=== PATIENT | male | born 2000 | race Caucasian/White ===

== ENCOUNTER 2021-10-23 18:47 | Emergency (ER) | payer BC ==
[2021-10-23 20:30] VITALS: RESP 18
[2021-10-23 20:43] LABS: Appearance,Urine Clear (Clear); Bilirubin,Urine Negative (Negative); Blood,Urine Negative (Negative); Color,Urine Colorless; Glucose,Urine (UA) Negative (Negative); Ketones,Urine Negative (Negative); Leukocyte Esterase,Urine Negative (Negative); Nitrite,Urine Negative (Negative); PH, Urine 6.5 (5.0-8.0); Protein,Urine Negative (Negative); Specific Gravity,Urine 1.003 (1.001-1.035); Urobilinogen,Urine <2.0 mg/dL (<2.0)
--- NOTE | 2021-10-23 22:16 | US ---
EXAMINATION TYPE: US scrotum with doppler. Grayscale and color Doppler Duplex imaging performed of mary kate salter scrotum. DATE OF EXAM: 10/23/2021 COMPARISON: NONE CLINICAL HISTORY: testicular pain. Testicular pain x 2 weeks EXAM MEASUREMENTS: TESTICLES: Right Testicle: 4.2 x 2.4 x 2.9 cm Left Testicle: 4.2 x 2.4 x 3.1 cm EPIDIDYMIS HEAD: Right Epididymis: 0.5 x 0.7 x 0.6 cm Left Epididymis: 0.6 x 1.0 x 0.5 cm Doppler performed to assess for testicular vascularity; good bilateral color flow and waveforms are s een. There is no evidence of testicular torsion. Presence of hydroceles: No Presence of varicoceles: No IMPRESSION: Normal testicular sonogram. No testicular torsion or mass. No free fluid.
--- NOTE | 2021-10-23 23:24 | ED ---
Male Urogenital HPI - General Chief complaint: Urogenital Stated complaint: Male Time Seen by Provider: 10/23/21 22:57 Source: patient, RN notes reviewed Mode of arrival: ambulatory Limitations: no limitations - History of Present Illness Initial comments: This is a pleasant 21-year-old male who presents immerse her back complaining of right testicular pain and right groin pain wasn't going on for about 2 weeks. Patient states he went to an urgent care when he was in another state and had STD testing done. Patient was treated at urgent care with antibiotics and was sent home on doxycycline. Patient states that the pain continue. He is describing a tight sensation. He feels like the right testicle is being pulled upward. Patient had a urinalysis and ultrasound done here in triage which were both negative. Patient denies any hematuria. He denies any significant back pain. Patient does indicate that the pain seemed to start up in the right groin, close to the right lower quadrant area. Patient also indicating that his appetite has been diminished. No fever No headache, no fever or chills, no changes in vision or hearing, no sore throat or difficulty with speech, no neck pain, no chest pain or shortness of breath, no nausea or vomiting, no changes in urination or bowel movements, no numbness or tingling, no extremity pain, no skin rashes or lesions. - Related Data Previous Rx's Medication Instructions Recorded Doxycycline Monohydrate [Monodox] 100 mg PO Q12HR #14 cap 10/24/21 Allergies Allergy/AdvReac Type Severity Reaction Status Date / Time No Known Allergies Allergy Verified 10/23/21 20:30 Review of Systems ROS Statement: Those systems with pertinent positive or pertinent negative responses have been documented in the HPI. ROS Other: All systems not noted in ROS Statement are negative. Past Medical History Past Medical History: No Reported History History of Any Multi-Drug Resistant Organisms: None Reported Past Surgical History: No Surgical Hx Reported Past Psychological History: Anxiety, Depression Smoking Status: Vaper Past Alcohol Use History: Occasional Past Drug Use History: Marijuana General Exam Limitations: no limitations General appearance: alert, in no apparent distress Head exam: Present: atraumatic, normocephalic, normal inspection Eye exam: Present: normal appearance, PERRL, EOMI. Absent: scleral icterus, conjunctival injection, periorbital swelling ENT exam: Present: normal exam, normal oropharynx, mucous membranes moist, normal external ear exam Neck exam: Present: normal inspection. Absent: tenderness, meningismus, lymphadenopathy Respiratory exam: Present: normal lung sounds bilaterally. Absent: respiratory distress, wheezes, rales, rhonchi, stridor Cardiovascular Exam: Present: regular rate, normal rhythm, normal heart sounds. Absent: systolic murmur, diastolic murmur, rubs, gallop, clicks GI/Abdominal exam: Present: soft, tenderness (Very mild tenderness noted in the right lower quadrant area to palpation. No rebound or percussion tenderness), normal bowel sounds. Absent: distended, guarding, rebound, rigid exam: Present: normal inspection, vertical testicular lie, circumcision, other (Cremasteric reflex is normal). Absent: testicular tenderness, urethral discharge, scrotal swelling Expanded Male exam: Absent: phimosis, paraphimosis, penile swelling, lesions, induration, erythema, perineal induration, balanitis, priapism exam: Cremasteric Reflex Present: Left, Right Extremities exam: Present: normal inspection, full ROM, normal capillary refill. Absent: tenderness, pedal edema, joint swelling, calf tenderness Back exam: Present: normal inspection Neurological exam: Present: alert, oriented X3, CN II-XII intact Psychiatric exam: Present: normal affect, normal mood Skin exam: Present: warm, dry, intact, normal color. Absent: rash Course Vital Signs 10/23/21 20:24 Temperature 98.4 F Pulse Rate 59 L Respiratory 18 Rate Blood Pressure 139/88 O2 Sat by Pulse 98 Oximetry - Reevaluation(s) Reevaluation #1: 10/24/21 03:09 Patient reevaluated and is hemodynamically stable. No distress. Again, patient's testicular exam was essentially benign. Medical Decision Making - Medical Decision Making We'll repeat STD testing., Concerned that we may have a partially treated appendicitis as the patient has been on antibiotics. Note that the patient has tested negative for STDs. The patient's workup here is essentially negative. However the patient does tell me that when he first went to the urgent care he had some penile discharge. Patient states he did not receive an injectable dose of antibiotics. He states he was just put on the doxycycline which he finished 7 days. Given the patient's vague symptomology, I'm wondering if we are dealing with a partially treated STD infection. Gonorrhea and chlamydia testing were sent. Patient mary kate ells me he tested negative at the urgent care. Going to go ahead and cover the patient with 500 mg of ceftriaxone and another seven-day course of doxycycline. We'll have him follow-up with the urologist. Patient agrees with this treatment plan. Patient was told to return to the ER for any signs or symptoms worsen. Told to return immediately if any other problems arise. All questions answered. Treatment plan discussed. Patient in agreement Every effort has been made to ensure accuracy of this dictation. However, due to the limitations of electronic medical records and dictation devices, errors in charting still occur. Patient told to call 8 AM in the morning for follow-up. Mail Reader Dr. Paredes - Lab Data Result diagrams: 10/24/21 00:44 10/24/21 00:44 Lab Results 10/23/21 10/24/21 10/24/21 Range/Units 20:32 00:44 00:44 WBC 7.3 (3.8-10.6) k/uL RBC 5.37 (4.30-5.90) m/uL Hgb 16.8 (13.0-17.5) gm/dL Hct 51.4 (39.0-53.0) % MCV 95.7 (80.0-100.0) fL MCH 31.4 (25.0-35.0) pg MCHC 32.8 (31.0-37.0) g/dL RDW 12.0 (11.5-15.5) % Plt Count 224 (150-450) k/uL MPV 7.7 Sodium 142 (137-145) mmol/L Potassium 4.9 (3.5-5.1) mmol/L Chloride 104 (98-107) mmol/L Carbon Dioxide 28 (22-30) mmol/L Anion Gap 10 mmol/L BUN 14 (9-20) mg/dL Creatinine 0.63 L (0.66-1.25) mg/dL Est GFR (CKD-EPI)AfAm >90 (>60 ml/min/1.73 sqM) Est GFR (CKD-EPI)NonAf >90 (>60 ml/min/1.73 sqM) Glucose 88 (74-99) mg/dL Calcium 9.4 (8.4-10.2) mg/dL Total Bilirubin 0.4 (0.2-1.3) mg/dL AST 40 (17-59) U/L ALT 25 (4-49) U/L Alkaline Phosphatase 68 (38-126) U/L C-Reactive Protein <0.5 (<1.0) mg/dL Total Protein 8.2 (6.3-8.2) g/dL Albumin 5.0 (3.5-5.0) g/dL Lipase 364 H (23-300) U/L Urine Color Colorless Urine Appearance Clear (Clear) Urine pH 6.5 (5.0-8.0) Ur Specific [place] 1.003 (1.001-1.035) Urine Protein Negative (Negative) Urine Glucose (UA) Negative (Negative) Urine Ketones Negative (Negative) Urine Blood Negative (Negative) Urine Nitrite Negative (Negative) Urine Bilirubin Negative (Negative) Urine Urobilinogen <2.0 (<2.0) mg/dL Ur Leukocyte Esterase Negative (Negative) - Radiology Data Radiology results: report reviewed, image reviewed Disposition Clinical Impression: Testicular pain, right, Urethritis Disposition: HOME SELF-CARE Condition: Good Instructions (If sedation given, give patient instructions): Testicle Pain (ED), Nonspecific Urethritis in Men (ED) Additional Instructions: Call at 8 AM to set up a follow-up appointment with the urologist as discussed. Take the antibiotics until they're gone. Wear sunscreen while taking the doxycycline. Follow-up with your regular physician as directed. Return to the ER immediately if any symptoms worsen, new symptoms arise, or any other problems develop. Prescriptions: Doxycycline Monohydrate [Monodox] 100 mg PO Q12HR #14 cap Is patient prescribed a controlled substance at d/c from ED?: No Referrals: Carson Miranda DO [Primary Care Provider] - 1-2 days Hernan Mitchell MD [STAFF PHYSICIAN] - As Soon As Possible Time of Disposition: 03:09
[2021-10-24 01:33] LABS: HCT 51.4 % (39.0-53.0); HGB 16.8 gm/dL (13.0-17.5); MCH 31.4 pg (25.0-35.0); MCHC 32.8 g/dL (31.0-37.0); MCV 95.7 fL (80.0-100.0); Mean Platelet Volume 7.7; Platelet Count 224 k/uL (150-450); RBC 5.37 m/uL (4.30-5.90); WBC 7.3 k/uL (3.8-10.6)
[2021-10-24 01:48] LABS: ALT 25 U/L (4-49); African American GFR (CKD) >90 (>60 ml/min/1.73 sqM); Anion Gap 10 mmol/L; Blood Urea Nitrogen 14 mg/dL (9-20); C Reactive Protein <0.5 mg/dL (<1.0); Calcium 9.4 mg/dL (8.4-10.2); Carbon Dioxide 28 mmol/L (22-30); Chloride 104 mmol/L (98-107); Glucose 88 mg/dL (74-99); Lipase 364 U/L (23-300); Non-African American GFR(CKD) >90 (>60 ml/min/1.73 sqM); Sodium 142 mmol/L (137-145); Total Bilirubin 0.4 mg/dL (0.2-1.3); Total Protein 8.2 g/dL (6.3-8.2)
--- NOTE | 2021-10-24 01:49 | CT ---
EXAMINATION TYPE: CT abdomen pelvis w con DATE OF EXAM: 10/24/2021 COMPARISON: None HISTORY: right sided abd pain CT DLP: 516.2 mGycm Automated exposure control for dose reduction was used. CONTRAST: Performed with IV Contrast, patient injected with 100 mL of Isovue 300. The lung bases are clear. Heart is normal. There is no pericardial effusion. There is no pleural effu luan. There is large fluid filled stomach. Liver and spleen are intact. There is no pancreatic mass. Gallbl adder appears normal. The bile ducts are not dilated. There is no adrenal mass. Kidneys have normal size and contour. There is no hydronephrosis. Ureters a re not dilated. There is no retroperitoneal adenopathy. Bladder distends smoothly. There is no inguin al hernia. No free fluid in the pelvis. There is no mesenteric edema. No ascites or free air. No sign of a bowel obstruction the appendix is inferior and appears normal. The lumbar vertebrae have normal alignment. Disc spaces are normal. Posterior elements are intact. No compression fracture. Hip joints are intact. Bony pelvis is intact. IMPRESSION: Negative CT scan of the abdomen and pelvis. Normal appendix.
[2021-10-24 02:08] LABS: Potassium 4.9 mmol/L (3.5-5.1)
[2021-10-24 02:09] LABS: AST 40 U/L (17-59); Alkaline Phosphatase 68 U/L (38-126)
[2021-10-24] MEDS ORDERED: cefTRIAXone IN SWFI 1,000 MG/10 ML SYRINGE IVP STA (03:04)
[2021-10-24] MEDS ORDERED: DOXYCYCLINE 100 MG CAP PO STA (03:05)
[2021-10-24 03:22] VITALS: BP 115/67; PULSE 57; TEMP 97.5
[2021-10-24 03:43] LABS: Lymphocytes # (M) 2.19 k/uL (1.0-4.8); Monocytes # (M) 0.88 k/uL (0-1.0); Neutrophils # (M) 4.23 k/uL (1.3-7.7); Neutrophils % (M) 58 %; Nucleated Red Blood Cells 0 /100 WBC (0-0); RBC Morphology Normal; Total Cells Counted 100
== END 2021-10-24 03:19 | disposition home or self-care (01) ==
LOC: EC 18:47
DX: N34.2 Other urethritis (principal); F17.290 Nicotine dependence, other tobacco product, uncomplicated
CPT/HCPCS: 36415; 74177; 76870; 80053; 81003; 83690; 85025; 86140; 86780; 87491; 87591; 93975; 96374; 99284

== ENCOUNTER 2023-12-14 20:59 | Emergency (ER) | payer BC ==
[2023-12-14 21:16] VITALS: TEMP 98.2
--- NOTE | 2023-12-14 23:43 | ED ---
General Adult HPI <Keshawn Curry - Last Filed: 12/17/23 02:07> - General Source: patient, RN notes reviewed, old records reviewed Mode of arrival: ambulatory Limitations: no limitations <Kenroy Randall - Last Filed: 12/17/23 07:27> - General Chief complaint: Skin/Abscess/Foreign Body Stated complaint: Genital Pain Time Seen by Provider: 12/14/23 21:56 - History of Present Illness Initial comments: 23 male to ER with scrotal pain (Keshawn Curry) Patient is a 23-year-old male who presents emergency department complaining of skin wound findings on his scrotum. Patient was seen by Dr. Lozada last week and had a growth removed from his penile shaft. Was given topical Antivert medication. States he has been applying this as he noticed some additional bumps of the inferior aspect of his penile shaft. However he noticed today that it began to become more erythematous and seems to now have either reaction or possible cellulitis over the left aspect of his scrotum. Denies any testicular pain. Denies any dysuria hematuria. Denies any history of STDs. Has been tested in the past. Denies any abdominal pain. Has no other acute complaints at this time. Presents for further evaluation. (Kenroy Randall) - Related Data Previous Rx's Medication Instructions Recorded Doxycycline Monohydrate [Monodox] 100 mg PO Q12HR #14 cap 10/24/21 Doxycycline [Vibramycin] 100 mg PO BID 1 Days #20 each 10/25/21 Doxycycline Hyclate 100 mg PO BID 14 Days #28 cap 12/14/23 Allergies Allergy/AdvReac Type Severity Reaction Status Date / Time No Known Allergies Allergy Verified 12/14/23 21:17 Review of Systems ROS Other: All systems not noted in ROS Statement are negative. <Keshawn Curry - Last Filed: 12/17/23 02:07> ROS Other: All systems not noted in ROS Statement are negative. <Kenroy Randall - Last Filed: 12/17/23 07:27> ROS Statement: Those systems with pertinent positive or pertinent negative responses have been documented in the HPI. Review of Systems: CONST: Denies fever EYES: Denies blurry vision ENT: Denies nasal congestion C/V: Denies Chest pain RESP: Denies shortness of breath GI: Denies abdominal pain : Endorses scrotal rash SKIN: Denies rash. MSK: Denies joint pain. NEURO: Denies headache (Kenroy Randall) Past Medical History Past Medical History: No Reported History History of Any Multi-Drug Resistant Organisms: None Reported Past Surgical History: No Surgical Hx Reported Additional Past Surgical History / Comment(s): growth removed from right testicle. Past Psychological History: Anxiety, Depression Smoking Status: Vaper Past Alcohol Use History: Occasional Past Drug Use History: None Reported, Marijuana <Kenroy Randall - Last Filed: 12/17/23 07:27> General Exam General appearance: alert, in no apparent distress Head exam: Present: atraumatic, normocephalic, normal inspection Eye exam: Present: normal appearance, PERRL, EOMI. Absent: scleral icterus, conjunctival injection, periorbital swelling ENT exam: Present: normal exam, mucous membranes moist Neck exam: Present: normal inspection. Absent: tenderness, meningismus, lymphadenopathy Respiratory exam: Present: normal lung sounds bilaterally. Absent: respiratory distress, wheezes, rales, rhonchi, stridor Cardiovascular Exam: Present: regular rate, normal rhythm, normal heart sounds. Absent: systolic murmur, diastolic murmur, rubs, gallop, clicks GI/Abdominal exam: Present: soft, normal bowel sounds. Absent: distended, tenderness, guarding, rebound, rigid Extremities exam: Present: normal inspection, full ROM, normal capillary refill. Absent: tenderness, pedal edema, joint swelling, calf tenderness Back exam: Present: normal inspection Neurological exam: Present: alert, oriented X3, CN II-XII intact Psychiatric exam: Present: normal affect, normal mood Skin exam: Present: warm, dry, intact, normal color. Absent: rash <Keshawn Curry - Last Filed: 12/17/23 02:07> Limitations: no limitations <Kenroy Randall - Last Filed: 12/17/23 07:27> - General Exam Comments Initial Comments: General: Appears in no acute distress. HEAD: Normal with no signs of head trauma. EYES: EOMI. ENT: Hearing grossly intact. RESPIRATORY: No respiratory distress. C/V: Regular rate and rhythm. ABD: Abdomen is nondistended. : Patient has an erythematous patch located over the left hemiscrotum with no obvious testicular tenderness to palpation. It does seem to have some raw skin and possible purulent discharge from it. Is not frankly an ulcer but could represent an early ulcer or chancre. No urethral discharge. EXT: No obvious deformity. SKIN: No rashes or lesions observed on exposed skin. See above for exam. NEURO: Alert and oriented. (Kenroy Randall) Course <Keshawn Curry - Last Filed: 12/17/23 02:07> Vital Signs 12/14/23 12/15/23 21:12 01:34 Temperature 98.2 F Pulse Rate 95 68 Respiratory 17 20 Rate Blood Pressure 149/100 130/80 O2 Sat by Pulse 96 98 Oximetry - Reevaluation(s) Reevaluation #1: Medical records reviewed (Keshawn Curry) Reevaluation #2: Patient will stop medication currently on and continue to treat localized rash, medication reaction (Keshawn Curry) Reevaluation #3: Patient informed of results questions answered (Keshawn Curry) Medical Decision Making - Lab Data Result diagrams: 12/14/23 23:45 12/14/23 23:45 <Keshawn Curry - Last Filed: 12/17/23 02:07> - Lab Data Result diagrams: 12/14/23 23:45 12/14/23 23:45 <Kenroy Randall - Last Filed: 12/17/23 07:27> - Medical Decision Making 3 male to ER for significant scrotal pain local scrotal medication reaction appears likely, patient can be discharged home (Keshawn Curry) Was pt. sent in by a medical professional or institution (, PA, [employer], urgent ca re, hospital, or chcf...) When possible be specific @ -No Did you speak to anyone other than the patient for history (EMS, parent, family, police, friend...)? What history was obtained from this source @ -No Did you review nursing and triage notes (agree or disagree)? Why? @ -I reviewed and agree with nursing and triage notes Were old charts reviewed (outside hosp., previous admission, EMS record, old EKG, old radiological studies, urgent care reports/EKG's, chcf records)? Report findings @ -No old charts were reviewed Differential Diagnosis (chest pain, altered mental status, abdominal pain women, abdominal pain men, vaginal bleeding, weakness, fever, dyspnea, syncope, headache, dizziness, GI bleed, back pain, seizure, CVA, palpatations, mental health, musculoskeletal)? @ -STD, chancre, chancroid, cellulitis, allergic reaction. This list is not all inclusive. EKG interpreted by me (3pts min.). @ -None done X-rays interpreted by me (1pt min.). @ -None done CT interpreted by me (1pt min.). @ -None done U/S interpreted by me (1pt. min.). @ -None done What testing was considered but not performed or refused? (CT, X-rays, U/S, labs)? Why? @ -None What meds were considered but not given or refused? Why? @ -None Did you discuss the management of the patient with other professionals (professionals i.e. , PA, [employer], lab, RT, psych nurse, social security assessor, channel process supervisor, teacher, chief technical officer, skilled nursing case manager)? Give summary @ -No Was smoking cessation discussed for >3mins.? @ -No Was critical care preformed (if so, how long)? @ -No Were there social determinants of health that impacted care today? How? (Homelessness, low income, unemployed, alcoholism, drug addiction, transportation, low edu. Level, literacy, decrease access to med. care, chcf, rehab)? @ -No Was there de-escalation of care discussed even if they declined (Discuss DNR or withdrawal of care, Hospice)? DNR status @ -No What co-morbidities impacted this encounter? (DM, HTN, Smoking, COPD, CAD, Cancer, CVA, ARF, Chemo, Hep., AIDS, mental health diagnosis, sleep apnea, morbid obesity)? @ -None Was patient admitted / discharged? Hospital course, mention meds given and route, prescriptions, significant lab abnormalities, going to OR and other pertinent info. @ -Patient presents emergency department complaining of possible allergic reaction versus skin infection of his left hemiscrotum. Cannot definitively rule out chancre as this could be early signs of 1. No significant history of STDs. However did recommend testing for gonorrhea, chlamydia, as well as syphilis. Patient in agreement this plan. Will also obtain basic labs to evaluate for any evidence of immunocompromise state. Patient was in agreement this plan. Vital signs currently within acceptable limits. He will be empirically treated either way for STD prophylaxis. Patient in agreement this plan. I did recommend he stop using his wart cream to see if that clears up his current skin finding. There is a long delay in waiting for lab draw due to nursing delay. Workup still pending at this time. Patient signed out to Dr. Curry pending results of laboratory studies. Patient completed currently given STD prophylactic treatment with IM Rocephin, dose of doxycycline and Flagyl, and prescription for 2 weeks of doxycycline sent to his pharmacy. Undiagnosed new problem with uncertain prognosis? @ -No Drug Therapy requiring intensive monitoring for toxicity (Heparin, Nitro, Insulin, Cardizem)? @ -No Were any procedures done? @ -No Diagnosis/symptom? @ -Cellulitis of scrotum, medication reaction Acute, or Chronic, or Acute on Chronic? @ -Acute Uncomplicated (without systemic symptoms) or Complicated (systemic symptoms)? @ -Uncomplicated Side effects of treatment? @ -None Exacerbation, Progression, or Severe Exacerbation] @ -No Poses a threat to life or bodily function? @ -Unlikely (Kenroy Randall) - Lab Data Lab Results 12/14/23 12/14/23 12/14/23 Range/Units 23:45 23:45 23:45 WBC 6.5 (3.8-10.6) k/uL RBC 5.25 (4.30-5.90) m/uL Hgb 16.8 (13.0-17.5) gm/dL Hct 49.4 (39.0-53.0) % MCV 94.1 (80.0-100.0) fL MCH 32.0 (25.0-35.0) pg MCHC 34.0 (31.0-37.0) g/dL RDW 12.2 (11.5-15.5) % Plt Count 176 (150-450) k/uL MPV 7.6 Neutrophils % 66 % Lymphocytes % 17 % Monocytes % 13 % Eosinophils % 0 % Basophils % 0 % Neutrophils # 4.3 (1.3-7.7) k/uL Lymphocytes # 1.1 (1.0-4.8) k/uL Monocytes # 0.8 (0-1.0) k/uL Eosinophils # 0.0 (0-0.7) k/uL Basophils # 0.0 (0-0.2) k/uL Sodium 140 (137-145) mmol/L Potassium 4.1 (3.5-5.1) mmol/L Chloride 107 (98-107) mmol/L Carbon Dioxide 22 (22-30) mmol/L Anion Gap 11 mmol/L BUN 5 L (9-20) mg/dL Creatinine 0.65 L (0.66-1.25) mg/dL Est GFR (CKD-EPI)AfAm >90 (>60 ml/min/1.73 sqM) Est GFR (CKD-EPI)NonAf >90 (>60 ml/min/1.73 sqM) Glucose 87 (74-99) mg/dL Calcium 9.3 (8.4-10.2) mg/dL Urine Color Colorless Urine Appearance Clear (Clear) Urine pH 7.0 (5.0-8.0) Ur Specific [place] 1.005 (1.001-1.035) Urine Protein Negative (Negative) Urine Glucose (UA) Negative (Negative) Urine Ketones Negative (Negative) Urine Blood Negative (Negative) Urine Nitrite Negative (Negative) Urine Bilirubin Negative (Negative) Urine Urobilinogen <2.0 (<2.0) mg/dL Ur Leukocyte Esterase Negative (Negative) Treponema pallidum Ab (Nonreactive) Chlamydia DNA (PCR) (Negative) N.gonorrhoeae DNA Probe (Negative) 12/14/23 12/14/23 Range/Units 23:45 23:45 WBC (3.8-10.6) k/uL RBC (4.30-5.90) m/uL Hgb (13.0-17.5) gm/dL Hct (39.0-53.0) % MCV (80.0-100.0) fL MCH (25.0-35.0) pg MCHC (31.0-37.0) g/dL RDW (11.5-15.5) % Plt Count (150-450) k/uL MPV Neutrophils % % Lymphocytes % % Monocytes % % Eosinophils % % Basophils % % Neutrophils # (1.3-7.7) k/uL Lymphocytes # (1.0-4.8) k/uL Monocytes # (0-1.0) k/uL Eosinophils # (0-0.7) k/uL Basophils # (0-0.2) k/uL Sodium (137-145) mmol/L Potassium (3.5-5.1) mmol/L Chloride (98-107) mmol/L Carbon Dioxide (22-30) mmol/L Anion Gap mmol/L BUN (9-20) mg/dL Creatinine (0.66-1.25) mg/dL Est GFR (CKD-EPI)AfAm (>60 ml/min/1.73 sqM) Est GFR (CKD-EPI)NonAf (>60 ml/min/1.73 sqM) Glucose (74-99) mg/dL Calcium (8.4-10.2) mg/dL Urine Color Urine Appearance (Clear) Urine pH (5.0-8.0) Ur Specific [place] (1.001-1.035) Urine Protein (Negative) Urine Glucose (UA) (Negative) Urine Ketones (Negative) Urine Blood (Negative) Urine Nitrite (Negative) Urine Bilirubin (Negative) Urine Urobilinogen (<2.0) mg/dL Ur Leukocyte Esterase (Negative) Treponema pallidum Ab Nonreactive (Nonreactive) Chlamydia DNA (PCR) Negative (Negative) N.gonorrhoeae DNA Probe Negative (Negative) Disposition Is patient prescribed a controlled substance at d/c from ED?: No Time of Disposition: 01:00 <Keshawn Curry - Last Filed: 12/17/23 02:07> Is patient prescribed a controlled substance at d/c from ED?: No <Kenroy Randall - Last Filed: 12/17/23 07:27> Clinical Impression: Cellulitis of scrotum, Medication reaction Disposition: HOME SELF-CARE Condition: Good Instructions (If sedation given, give patient instructions): Scrotal Pain (ED) Prescriptions: Doxycycline Hyclate 100 mg PO BID 14 Days #28 cap Referrals: Carson Miranda DO [Primary Care Provider] - 1-2 days
[2023-12-15] MEDS: metroNIDAZOLE 500 MG TAB PO STA (00:10)
[2023-12-15] MEDS: cefTRIAXone 250 MG VIAL IM STA (00:11)
[2023-12-15] MEDS: DOXYCYCLINE 100 MG CAP PO STA (00:11)
[2023-12-15 00:41] LABS: Basophils % (A) 0 %; Eosinophils % (A) 0 %; HCT 49.4 % (39.0-53.0); HGB 16.8 gm/dL (13.0-17.5); Lymphocytes # (A) 1.1 k/uL (1.0-4.8); Lymphocytes % (A) 17 %; MCV 94.1 fL (80.0-100.0); Mean Platelet Volume 7.6; Monocytes # (A) 0.8 k/uL (0-1.0); Monocytes % (A) 13 %; Neutrophils # (A) 4.3 k/uL (1.3-7.7); Neutrophils % (A) 66 %; Platelet Count 176 k/uL (150-450); RBC 5.25 m/uL (4.30-5.90); RDW 12.2 % (11.5-15.5); WBC 6.5 k/uL (3.8-10.6)
[2023-12-15 00:50] LABS: Appearance,Urine Clear (Clear); Bilirubin,Urine Negative (Negative); Blood,Urine Negative (Negative); Color,Urine Colorless; Glucose,Urine (UA) Negative (Negative); Ketones,Urine Negative (Negative); Leukocyte Esterase,Urine Negative (Negative); Nitrite,Urine Negative (Negative); Protein,Urine Negative (Negative); Specific Gravity,Urine 1.005 (1.001-1.035); Urobilinogen,Urine <2.0 mg/dL (<2.0)
[2023-12-15 00:55] LABS: African American GFR (CKD) >90 (>60 ml/min/1.73 sqM); Anion Gap 11 mmol/L; Blood Urea Nitrogen 5 mg/dL (9-20); Calcium 9.3 mg/dL (8.4-10.2); Carbon Dioxide 22 mmol/L (22-30); Chloride 107 mmol/L (98-107); Glucose 87 mg/dL (74-99); Non-African American GFR(CKD) >90 (>60 ml/min/1.73 sqM); Potassium 4.1 mmol/L (3.5-5.1); Sodium 140 mmol/L (137-145)
[2023-12-15 01:35] VITALS: BP 130/80; PULSE 68; RESP 20
[2023-12-16 13:00] LABS: C. trachomatis,PCR Negative (Negative); N. gonorrhoeae,PCR Negative (Negative)
== END 2023-12-15 01:35 | disposition home or self-care (01) ==
LOC: EC 20:59
DX: N49.2 Inflammatory disorders of scrotum (principal); T49.8X5A Adverse effect of other topical agents, initial encounter; F17.290 Nicotine dependence, other tobacco product, uncomplicated
CPT/HCPCS: 99282; 96372; 36415; 80048; 85025; 81003; 87491; 87591; 86780; J0696